=== PATIENT | female | born 1945 | race Two or more races ===

== ENCOUNTER → 2018-09-25 | Outpatient (CLI) | payer OTHER ==
[~2018-09-25] MED LIST: BRAIN MIGHT-DH1 EACH PO; COD LIVER OIL1 EACH PO; FOLIC ACID1 MG PO; GLUTATHIONE PO; VITB 12 PO
== END | disposition home or self-care (01) ==
LOC: SONOGRAMA 11:14 → MAMO-SONO 13:15
DX: R10.84 Generalized abdominal pain (principal); M54.5 Low back pain

== ENCOUNTER → 2018-11-27 | Outpatient (CLI) | payer OTHER | END | disposition home or self-care (01) | LOC: TOM 08:12 | DX: K46.9 Unspecified abdominal hernia without obstruction or gangrene (principal) ==

== ENCOUNTER 2019-01-06 12:53 | Outpatient (CLI) | payer OTHER | END 2019-01-06 13:00 | disposition home or self-care (01) | LOC: NUCLEAR 12:53 | DX: R16.1 Splenomegaly, not elsewhere classified (principal); D46.9 Myelodysplastic syndrome, unspecified; E83.111 Hemochromatosis due to repeated red blood cell transfusions | CPT/HCPCS: 78215; A9541 ==

== ENCOUNTER → 2020-04-20 | Outpatient (CLI) | payer OTHER | END | disposition home or self-care (01) | LOC: RAD 11:45 | PROVIDERS: ATTEND Internal Medicine Hematology & Oncology | DX: Z00.00 Encounter for general adult medical examination without abnormal findings (principal) ==

== ENCOUNTER 2020-04-30 08:36 | Outpatient (CLI) | payer OTHER | END 2020-04-30 08:39 | disposition home or self-care (01) | LOC: SONOGRAMA 08:36 → MAMO-SONO 08:45 | DX: R10.2 Pelvic and perineal pain (principal); R10.84 Generalized abdominal pain ==

== ENCOUNTER 2020-06-15 08:41 | Outpatient (CLI) | payer OTHER | END 2020-06-15 08:47 | disposition home or self-care (01) | LOC: MRI 08:41 | PROVIDERS: ATTEND Internal Medicine Hematology & Oncology | DX: G93.89 Other specified disorders of brain (principal); G44.029 Chronic cluster headache, not intractable | CPT/HCPCS: 70553; A9575; 70552 ==

== ENCOUNTER 2020-06-15 09:26 | Outpatient (CLI) | payer OTHER | END 2020-06-15 10:07 | disposition home or self-care (01) | LOC: LAB 09:26 | PROVIDERS: ATTEND Radiology Diagnostic Radiology | DX: N20.0 Calculus of kidney (principal) ==

== ENCOUNTER 2020-07-15 07:43 | Outpatient (CLI) | payer OTHER | END 2020-07-15 08:06 | disposition home or self-care (01) | LOC: MRI 07:43 | PROVIDERS: ATTEND Internal Medicine Hematology & Oncology | DX: I25.41 Coronary artery aneurysm (principal) | CPT/HCPCS: 70544 ==

== ENCOUNTER 2020-11-11 08:52 | Outpatient (CLI) | payer OTHER | END 2020-11-11 09:03 | disposition home or self-care (01) | LOC: TOM 08:52 | PROVIDERS: ATTEND Internal Medicine Gastroenterology | DX: R10.84 Generalized abdominal pain (principal); K80.80 Other cholelithiasis without obstruction ==

== ENCOUNTER 2022-02-13 07:23 | Outpatient (CLI) | payer OTHER | END 2022-02-13 07:37 | disposition home or self-care (01) | LOC: TOM 07:23 | PROVIDERS: ATTEND Internal Medicine Hematology & Oncology | DX: G44.019 Episodic cluster headache, not intractable (principal); E04.2 Nontoxic multinodular goiter; R13.14 Dysphagia, pharyngoesophageal phase | CPT/HCPCS: 70470; 70491; Q9965 ==

== ENCOUNTER 2022-04-05 10:53 | Outpatient (CLI) | payer OTHER | END 2022-04-05 10:57 | disposition home or self-care (01) | LOC: RAD 10:53 | PROVIDERS: ATTEND Internal Medicine Hematology & Oncology | DX: M54.9 Dorsalgia, unspecified (principal); M62.830 Muscle spasm of back ==

== ENCOUNTER 2022-08-01 09:50 | Outpatient (CLI) | payer OTHER | END 2022-08-01 09:55 | disposition home or self-care (01) | LOC: SONOGRAMA 09:50 | PROVIDERS: ATTEND Internal Medicine Hematology & Oncology | DX: E06.1 Subacute thyroiditis (principal); E04.1 Nontoxic single thyroid nodule ==

== ENCOUNTER 2023-01-12 09:11 | Outpatient (CLI) | payer OTHER | END 2023-01-12 09:21 | disposition home or self-care (01) | LOC: SONOGRAMA 09:11 | PROVIDERS: ATTEND Internal Medicine Hematology & Oncology | DX: N20.0 Calculus of kidney (principal); N13.30 Unspecified hydronephrosis; Z91.018 Allergy to other foods ==

== ENCOUNTER 2023-03-12 09:57 | Outpatient (CLI) | payer OTHER ==
[2023-03-12 11:04] LABS: ABG PH 7.473 (7.35-7.45); ABG pCO2 32.1 mmHg (35-45); BASE EXCESS 0.2 mmol/l; SaO2 98.7 %; o2 21 %
[2023-03-12 11:05] LABS: allen test SATISFACTORY; puncture site RADIAL RIGHT
== END 2023-03-12 09:58 | disposition home or self-care (01) ==
LOC: LAB 09:57
PROVIDERS: ATTEND Internal Medicine Hematology & Oncology
DX: R09.02 Hypoxemia (principal); D46.A Refractory cytopenia with multilineage dysplasia; D46.C Myelodysplastic syndrome with isolated del(5q) chromosomal abnormality

== ENCOUNTER 2023-11-27 08:27 | Outpatient (CLI) | payer OTHER | END 2023-11-27 08:38 | disposition home or self-care (01) | LOC: RAD 08:27 | PROVIDERS: ATTEND Internal Medicine | DX: R10.9 Unspecified abdominal pain (principal); R10.2 Pelvic and perineal pain ==

== ENCOUNTER 2024-05-27 12:04 | Outpatient (CLI) | payer OTHER | END 2024-05-27 12:11 | disposition home or self-care (01) | LOC: SONOGRAMA 12:04 | PROVIDERS: ATTEND Internal Medicine Hematology & Oncology | DX: D17.5 Benign lipomatous neoplasm of intra-abdominal organs (principal) ==